=== PATIENT | female | born 1965 | race African-American/Black ===

== ENCOUNTER 2016-07-11 14:39 | Observation (INO) | payer OTHER ==
--- NOTE | ~2016-07-11 | HP ---
History And Physical [id number] [facility] [place]. [address] NAME: MONISHA GUZMAN : 67 STATUS : ADM Johanna PAT#: [id number] AGE: 51 ADM/REG DATE : 07/11/16 MR#: [id number] REPORT SERV DATE: 07/12/16 DICTATED BY: KIMBERLY BARNES DATE: 07/12/16 REPORT STATUS : Draft TRANSCRIBED BY: MODParas DATE: 07/12/16 DATE OF ADMISSION: 07/11/2016 TELEGRAPH PLANT MAINTAINER: Jayce Mcnally M.D. CHIEF COMPLAINT: Chest pain and shortness of breath. 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 Whelan at [facility] in [address] Mcnally's notes indicate a myocardial bridge thought to be insignificant from those reports. The patient states that yesterday at work, 07/11/2016, she became short of breath and diaphoretic with some left-sided chest discomfort that radiated towards her left shoulder. She reports having been in the bed most of the weekend for "chronic fatigue, pain, and headache" at work. The chest pain was rated a 10/10 at its most intense. At time of interview in the [facility], she is pain-free. The episode lasted approximately 90 minutes in duration. EMS was called, 3 sprays of nitroglycerin were provided en route with relief of her pain, but the symptoms did returned 3 hours later in our ER and were resolved with the application of Nitrol paste. The patient denies any nausea, dizziness, or belching. The patient denies any personal history of myocardial infarction, stroke, DVT, or pulmonary embolus. The patient denies any recent fever or chills. No palpitations. No syncopal episodes. Denies PND or orthopnea. Of note, the patient continues to report claudication-like symptoms with ambulation but has undergone NA studies with Dr. Mcnally which are negative according to the records. PAST MEDICAL HISTORY: 1. Dyslipidemia. 2. AODM. 3. Fibromyalgia. 4. IBS. 5. Migraine headaches. 6. Undetermined connective tissue disorder, followed by Dr. Erica Smith. 7. The patient denies hypertension. PAST SURGICAL HISTORY: 1. Tonsils and adenoids. 2. Hysterectomy. 3. Cholecystectomy. 4. Breast augmentation. SOCIAL HISTORY: She is with two children. 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 She does not have an exercise routine. Denies tobacco, alcohol, or illicits. History And Physical [address] [address] NAME: MONISHA GUZMAN : 67 STATUS : ADM Johanna PAT#: [id number] AGE: 51 ADM/REG DATE : 07/11/16 MR#: [id number] REPORT SERV DATE: 07/12/16 DICTATED BY: KIMBERLY BARNES DATE: 07/12/16 REPORT STATUS : Draft TRANSCRIBED BY: KADEN DATE: 07/12/16 FAMILY HISTORY: Father with hypertension and diabetes, alive at 72. Mother with peripheral vascular disease and stents at 62, alive at 68. REVIEW OF SYSTEMS: A 14-point review of systems performed, significant for HPI including home blood sugars of approximately 150, most recent hemoglobin A1c of 7 per patient's report. Otherwise, complete review of systems obtained and negative. ALLERGIES: ALLERGY TO SULFA, RASH. HOME MEDICINES: Atorvastatin 80 mg nightly, carvedilol 3.125 mg twice daily, Zyrtec 10 mg nightly, Librax 1 capsule 4 times daily p.r.n., vitamin D 5000 units daily, Flexeril 10 mg nightly, Colace daily, Cymbalta 30 mg daily, Lasix 20 mg daily, Neurontin 100 mg three times daily, Plaquenil 200 mg twice daily, metformin 500 mg twice daily, potassium 20 mEq daily, and Imitrex p.r.n. PHYSICAL EXAMINATION: BLOOD PRESSURE: Bilateral blood pressures on arrival, right 120/70, left 107/63. This morning, 121/73. PULSE: 80. RESPIRATORY RATE: 20. TEMPERATURE: 97.9. O2 saturation 98% on room air. HEIGHT: 5 feet 2 inches. WEIGHT: 184 pounds. BMI 34. GENERAL: Cooperative, in no apparent distress. HEENT: Pupils 2 mm, sclera nonicteric. Nares patent. Moist mucous membranes. No xanthelasma. NECK: Trachea midline, no thyromegaly. No JVD. No bruits. LYMPH: No cervical lymphadenopathy. No supraclavicular lymphadenopathy. RESPIRATORY: Unlabored respirations. Breath sounds clear bilaterally to posterior auscultation. No wheezes or rhonchi. CARDIOVASCULAR: Regular rate. No murmur, rub or gallop appreciated. Extremities without edema. Pulses 2+ bilaterally. ABDOMEN: Soft, nontender, nondistended, normal bowel sounds auscultated throughout. No organomegaly. SKIN: Warm, dry extremities. No pallor, or cyanosis. PSYCHIATRIC: Appropriate affect. Alert, oriented x3. LABORATORY DATA: Troponin less than 0.02 x3. Potassium 4.7, BUN 11, creatinine 0.80, glucose 144, magnesium 2.0, WBC 7.2, hemoglobin 11.7, hematocrit 38.1, and platelet count 287,000. EKG: Sinus rhythm. Cath in [address] Whelan, reportedly no CAD with insignificant myocardial bridge. ASSESSMENT AND PLAN: 1. Atypical chest pain in patient with risk factors of dyslipidemia and diabetes. The patient has been observed in the CPOU overnight to rule out myocardial infarction with 3 sets of cardiac markers negative, EKG appears stable. The patient will be held n.p.o. for cardiac PET later today given breast augmentation. The patient will be History And Physical [address] [address] NAME: MONISHA GUZMAN : 67 STATUS : ADM Johanna PAT#: [id number] AGE: 51 ADM/REG DATE : 07/11/16 MR#: [id number] REPORT SERV DATE: 07/12/16 DICTATED BY: KIMBRELY BARNES DATE: 07/12/16 REPORT STATUS : Draft TRANSCRIBED BY: MODParas DATE: 07/12/16 discharged home if low risk, no ischemia. If anything suggestive of ischemia, Cardiology referral will be initiated. Otherwise, the patient will be asked to follow with Dr. Miguel and Dr. Mcnally as appropriate. Hold beta oneil for cardiac PET. 2. Dyslipidemia continue statin. 3. Adult-onset diabetes mellitus, hold metformin level 1 sliding scale correction. ANDREW/KADEN PREETI Irwin, PULLEY MAINTAINER-BC / [id number] CC: PREETI Irwin, PULLEY MAINTAINER-BC Steffany Miguel MD
[2016-07-11 14:03] LABS: BASOPHILS 0.4 %; BASOPHILS ABSOLUTE 0.03 10/3/uL (0.0-0.16); EOSINOPHILS 1.4 %; ER CBC TAT 0 Hrs 07 Mins; HEMATOCRIT 38.1 % (36.0-48.0); HEMOGLOBIN 11.7 g/dL (12.0-16.0); LYMPHOCYTES 22.3 %; LYMPHOCYTES ABSOLUTE 1.61 10/3/uL (0.67-4.30); MEAN CORPUS HGB CONC 30.7 g/dL (32.0-36.0); MEAN CORPUSCULAR HEMOGLOB 27.3 pg (26.0-34.0); MEAN CORPUSCULAR VOLUME 88.8 fL (80-100); MEAN PLATELET VOLUME 10.6 fL (9.2-13.0); MONOCYTES 9.4 %; MONOCYTES ABSOLUTE 0.68 10/3/uL (0.21-1.20); NEUTROPHILS 66.5 %; NEUTROPHILS ABSOLUTE 4.81 10/3/uL (2.02-8.40); PLATELET COUNT 287 10/3/uL (150-400); RED CELL COUNT 4.29 10/6/uL (4.0-5.6); WHITE BLOOD CELLS 7.2 10/3/uL (4.5-10.5)
[2016-07-11 14:04] LABS: MANUAL DIFF NO %
[2016-07-11 14:09] LABS: PARTIAL THROMBO TIME 30.4 SEC (22.5-37.2); PROTIME (NOT ORD) 12.7 SEC (12.0-14.5)
[2016-07-11 14:19] LABS: BUN (BLOOD UREA NITROGEN) 10 MG/DL (6-23); CALCIUM, SERUM 8.4 MG/DL (8.5-10.4); CHEST PAIN PROFILE TAT 0 Hrs 23 Mins; CHLORIDE, SERUM 103 MMOL/L (96-112); CO2 (CARBON DIOXIDE) 32 MMOL/L (24-34); CREATININE 0.77 MG/DL (0.55-1.02); GFR AFRICAN AMERICAN 104 ML/MIN (>=60); GFR NON AFRICAN AMERICAN 90 ML/MIN (>=60); GLUCOSE, SERUM 125 MG/DL (60-99); POTASSIUM, SERUM 3.7 MMOL/L (3.5-5.3); SODIUM, SERUM 144 MMOL/L (135-148); TROPONIN I <0.02 NG/ML (<0.05)
[~2016-07-11 14:39] MED LIST: COREG3 PO; ESTRADIOL1 MG PO; FLEX PO; GLUCPH PO; IMITREX25 PO; K-TABS10 MEQ PO; L20 PO; LIMBITROL1 TAB PO; LIPITOR80 MG PO; MIRALAXPKT PO; NEUR100 PO; PRILO PO; PROZAC PO
[2016-07-11] MEDS ORDERED: L20 PO (18:16)
[2016-07-11] MEDS ORDERED: KLOR-CON M2020 MEQ PO (18:16)
[2016-07-11] MEDS ORDERED: D 5000 PO (18:17)
[2016-07-11] MEDS ORDERED: CYMBALTA30 PO (18:17)
[2016-07-11] MEDS ORDERED: NEUR100 PO (18:18)
[2016-07-11] MEDS ORDERED: FLEX PO (18:18)
[2016-07-11] MEDS ORDERED: DSS PO (18:19)
[2016-07-11] MEDS ORDERED: ZYRTEC ALLGY10 MG PO (18:19)
[2016-07-11] MEDS ORDERED: LIPITOR80 MG PO (18:19)
[2016-07-11] MEDS ORDERED: GLUCOPHAGE1000 MG PO (18:19)
[2016-07-11] MEDS ORDERED: COREG3 PO (18:20)
[2016-07-11] MEDS ORDERED: LIBRAX PO (18:22)
[2016-07-11] MEDS ORDERED: PLAQ200B PO (18:23)
[2016-07-11] MEDS ORDERED: IMITREX25 PO (18:23)
[2016-07-12 08:16] LABS: BUN (BLOOD UREA NITROGEN) 11 MG/DL (6-23); CALCIUM, SERUM 9.1 MG/DL (8.5-10.4); CHLORIDE, SERUM 105 MMOL/L (96-112); GFR AFRICAN AMERICAN 100 ML/MIN (>=60); GFR NON AFRICAN AMERICAN 86 ML/MIN (>=60); GLUCOSE, SERUM 144 MG/DL (60-99); SODIUM, SERUM 141 MMOL/L (135-148)
[2016-07-12 08:17] LABS: CO2 (CARBON DIOXIDE) 27 MMOL/L (24-34); POTASSIUM, SERUM 4.7 MMOL/L (3.5-5.3)
== END 2016-07-12 13:42 | disposition home or self-care (01) ==
LOC: ER 14:39 → CDU1 18:33
PROVIDERS: Clinical Nurse Specialist; Emergency Medicine
DX: R07.89 Other chest pain (principal); E78.5 Hyperlipidemia, unspecified; E11.9 Type 2 diabetes mellitus without complications; M79.7 Fibromyalgia; K58.9 Irritable bowel syndrome, unspecified; G43.909 Migraine, unspecified, not intractable, without status migrainosus; Z90.710 Acquired absence of both cervix and uterus; Z90.49 Acquired absence of other specified parts of digestive tract; Z98.890 Other specified postprocedural states; Z88.2 Allergy status to sulfonamides; Z88.8 Allergy status to other drugs, medicaments and biological substances; Z79.899 Other long term (current) drug therapy
CPT/HCPCS: 71020; 78492; 80048; 82962; 83735; 84484; 85025; 85610; 85730; 93005; 93017; 96374; 96375; 99285; A9270-GY; A9555; G0378; J2405; J2785